=== PATIENT | male | born 1975 | race Caucasian/White ===

== ENCOUNTER 2016-10-13 17:43 | Inpatient (IN) | payer OTHER ==
[2016-10-13] MEDS ORDERED: Lactated Ringers 1,000 ML IV SCH (18:00)
[2016-10-13] MEDS ORDERED: HYDROmorphone 0.5 MG/0.5 ML Syringe IVPUSH ONE (18:02)
[2016-10-13] MEDS ORDERED: Iopamidol 612 MG/ML 150 ML Bottle IVPUSH ONE (18:03)
[2016-10-13] MEDS ORDERED: Sodium Chloride 0.9% 10 ML Syringe FLUSH PRN (18:03)
[2016-10-13] MEDS ORDERED: HYDROmorphone 0.5 MG/0.5 ML Syringe ONE (18:04)
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
[2016-10-13 18:18] VITALS: BP 123/92
--- NOTE | 2016-10-13 19:01 | CT ---
Head CT Technique: Multiple axial sections through the brain were obtained. Intravenous contrast was not utilized. Comparison: No previous intracranial imaging. Findings: Ventricles along with basal cisterns and sulci over the convexities appear within normal limits for the patient's age. No abnormal parenchymal densities are seen. No evidence of intracranial hemorrhage. No midline shift or mass effect is seen. No acute calvarial abnormality is seen. Soft tissue swelling noted around the left periorbital region. Impression: 1. Soft tissue swelling around the left periorbital region. 2. No acute intracranial abnormality is identified on noncontrast head CT study. Diagnostic code #3
--- NOTE | 2016-10-13 19:05 | CT ---
CT cervical spine Technique: Multiple axial sections were obtained from above C1 inferiorly to the bottom of T2. Reconstructed sagittal and coronal images were reviewed. Findings: Posterior skull base is intact. Moderate disc space narrowing is noted at C5-C6 and C6-C7. Mild disc space narrowing is noted at C4-C5. Mild posterior osteophytes are noted at C5-C6 and C6-C7. Mild anterior osteophytes are noted at C5-C6 and C6-C7. Vertebral bodies and posterior arches are intact. No fracture is seen. No bony central or bony neural foraminal stenosis is seen. No abnormal subluxation is seen on the reconstructed sagittal images. Mild scoliosis is present. Impression: 1. Mild degenerative change as noted above. Mild scoliosis is seen. 2. Nothing acute is identified on CT study of the cervical spine. Diagnostic code #2
--- NOTE | 2016-10-13 19:05 | CT ---
CT chest Technique: Multiple axial sections through the chest were obtained. Intravenous contrast was utilized. Some artifact is noted from patient's arms located along the sides of the body and not elevated. Comparison: No previous chest imaging. Findings: Mediastinum and hilar regions appear within normal limits. Opacified great vessels appear within normal limits. No pericardial thickening is seen. Mild gynecomastia is identified bilaterally. Lungs are clear. No pulmonary contusion is seen. No pleural effusions or pneumothorax is identified. Bone window settings were reviewed which shows no discrete rib fracture. Vertebral body heights and disc spaces are fairly well-preserved within the thoracic spine. Sternum appears intact on the reconstructed sagittal images. Impression: 1. Nothing acute is seen on CT study of the chest. Incidental findings as noted above. Diagnostic code #1 CT abdomen and pelvis Technique: Multiple axial sections were obtained from above the dome of the diaphragm inferiorly through the pubic symphysis. Intravenous contrast was utilized. No oral contrast has been given. Details slightly limited as patient's arms are located along the patient's side which causes some artifact. Findings: Liver and spleen appear within normal limits when allowing for artifact. Adrenal glands show no nodule. Kidneys show symmetric contrast enhancement. Small nonobstructing calculus is noted within the mid to lower right kidney measuring 4 mm. Kidneys otherwise are unremarkable. Pancreas is within normal limits. Gallbladder shows no calcified gallstones. Aorta shows minimal atherosclerotic calcification without aneurysmal dilatation. No retroperitoneal adenopathy or mesenteric abnormalities are seen. No pelvic mass or adenopathy is seen. No free fluid or inflammatory change is seen within the abdomen or within the pelvis. Appendix appears within normal limits. Delayed images also were obtained through the abdomen and pelvis which shows contrast excretion into both ureters and bladder. Bone window settings were reviewed which shows no discrete fracture within the lumbar spine or within the pelvis/hips. Impression: 1. Incidental findings. Nothing acute is identified on CT study of the abdomen and pelvis. Diagnostic code #2
[2016-10-13] MEDS ORDERED: Lidocaine 1% with EPINEPHrine 1:100,000 20 ML MDV INJECT ONE (20:04)
--- NOTE | 2016-10-13 20:38 | CT ---
Head CT Technique: Multiple axial sections of the brain were obtained. Intravenous contrast was not utilized although slight enhancement is present from prior CT exam performed earlier. Study is also compared to previous head CT study on the same day (time 6:15 PM). Findings: Ventricles along with basal cisterns and sulci over the convexities remain within normal limits. No abnormal parenchymal densities are seen. No evidence of intracranial hemorrhage is appreciated. No midline shift or mass effect is seen. Soft tissue swelling remains around the left periorbital region. Bone window settings appear within normal limits. Impression: 1. Left sided periorbital soft tissue swelling. Nothing else acute is appreciated on head CT exam. No significant change is seen from prior head CT exam. Diagnostic code #3
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
--- NOTE | 2016-10-14 09:41 | CR ---
Left shoulder: Three views of the left shoulder were obtained. Study performed utilizing portable technique and is slightly suboptimal in positioning and technique. No discrete fracture or other abnormality is seen. Impression: 1. No discrete abnormality is seen on left shoulder study. If patient remains symptomatic, repeat study is recommended. Diagnostic code #2
--- NOTE | 2016-10-14 09:41 | CR ---
Left wrist: Three views of the left wrist were obtained utilizing portable technique. Small calcification, likely representing old injury is seen off the base of the first metacarpal. Joint spaces within the wrist are preserved. No acute fracture or other bony abnormality is appreciated. Impression: 1. Small calcification likely old off the base of the first metacarpal. 2. Left wrist exam is otherwise unremarkable. Diagnostic code #2
--- NOTE | 2016-10-14 09:41 | CT ---
Head CT Technique: Multiple axial sections through the brain were obtained. Intravenous contrast was not utilized. Comparison: Previous head CT study performed earlier on the same day (8:24 PM). Findings: Ventricles along with basal cisterns and sulci over the convexities are within normal limits for the patient's age. No abnormal parenchymal densities are seen. No evidence of intracranial hemorrhage. No midline shift or mass effect is seen. Bone window settings were reviewed which show the visualized sinuses to appear clear. No discrete calvarial abnormality is appreciated. Impression: 1. No acute intracranial abnormality is seen. No significant change is seen from prior head CT exam. Diagnostic code #1 I agree with preliminary report issued by [facility] ([facility] preliminary report dictated on 10/14/16, 1:29 AM Central Time)
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
== END 2016-10-13 23:30 | DRG 299 ==
LOC: JD.ED 17:43 → JD.ICU 20:47
PROVIDERS: ADMIT Surgery; ATTEND Surgery
DX: I77.71 Dissection of carotid artery (principal); I63.9 Cerebral infarction, unspecified; S06.0X1A Concussion with loss of consciousness of 30 minutes or less, initial encounter; V28.0XXA Motorcycle driver injured in noncollision transport accident in nontraffic accident, initial encounter; Y92.410 Unspecified street and highway as the place of occurrence of the external cause; S00.12XA Contusion of left eyelid and periocular area, initial encounter; S60.512A Abrasion of left hand, initial encounter; S60.812A Abrasion of left wrist, initial encounter; S40.012A Contusion of left shoulder, initial encounter; S50.312A Abrasion of left elbow, initial encounter; S30.1XXA Contusion of abdominal wall, initial encounter; S51.012A Laceration without foreign body of left elbow, initial encounter; S61.512A Laceration without foreign body of left wrist, initial encounter
CPT/HCPCS: 12001; 36415; 70450; 70450-26; 71260; 71260-26; 72125; 72125-26; 73030-26-LT; 73030-LT; 73110-26-LT; 73110-LT; 74177; 74177-26; 80048; 80053; 80306; 81001; 82150; 82550; 83735; 84484; 85025; 85610; 85730; 93005; 96361; 96374; 99285; 99285-25; G0480; J1170; J7050; J7120; Q9967